=== PATIENT | male | born 1965 | race Caucasian/White ===

== ENCOUNTER 2025-07-01 10:28 | Outpatient (CLI) | payer MEDICAID ==
--- NOTE | 2025-07-01 14:04 | RADIOLOGY REPORT ---
Exam: MR MRI PELVIS History: MALIGNANT NEOPLASM OF PROSTATE Comparison: None Technique: Multisequence multiplanar MRI images were obtained of the pelvis. Findings: Bladder: Unremarkable. Visualized bowel: Visualized portion of the bowel is grossly unremarkable without evidence for obstruction. Small fat containing umbilical hernia. Small bilateral fat containing inguinal hernias. Pelvic organs: Prostate gland measures 5.3 x 3.9 x 5.8 cm. Spacer material is present between the posterior aspect of the prostate gland and anterior aspect of the rectum measuring approximately 3.2 x 1.5 by 5.0 cm. Lymphadenopathy: No evidence for pelvic lymphadenopathy. Vasculature: There is normal enhancement of the pelvic vasculature. Ascites: Absent. Musculoskeletal: The bone marrow signal is preserved. IMPRESSION: Examination is not performed as prostate protocol. No evidence for pelvic lymphadenopathy. Prostate gland is enlarged. Spacer noted between the posterior aspect of the prostate gland and anterior aspect of the rectum
[2025-07-01] MEDS ORDERED: GADOTERATE MEGLUMINE 7.5 MMOL/15 ML VIAL IV ONE (18:47)
== END 2025-07-01 23:59 | disposition home or self-care (01) ==
LOC: MRI 10:28
PROVIDERS: ATTEND Student in an Organized Health Care Education/Training Program
DX: C61 Malignant neoplasm of prostate (principal); R97.20 Elevated prostate specific antigen [PSA]; K42.9 Umbilical hernia without obstruction or gangrene; K40.90 Unilateral inguinal hernia, without obstruction or gangrene, not specified as recurrent
CPT/HCPCS: 72197; A9575